=== PATIENT | female | born 1995 | race Native Hawaiian/Other Pacific Islander ===

== ENCOUNTER 2017-11-03 17:01 | Emergency (ER) | payer OTHER ==
[2017-11-03] MEDS ORDERED: ACETAMINOPHEN TAB 500 MG TAB PO STA (17:30)
--- NOTE | 2017-11-03 17:33 | ED ---
Abdominal Pain HPI - General Chief Complaint: Abdominal Pain Stated Complaint: ABDOMINAL PAIN Time Seen by Provider: 11/03/17 17:23 Source: patient Mode of arrival: ambulatory Limitations: no limitations - History of Present Illness Initial Comments: The patient is a 22-year-old female who presents with a chief complaint of right lower quadrant and right-sided back and flank pain. The patient states that her pain started at 11:00 this morning. She has never had pain like this before. She does not have any history of kidney stones. The patient describes her pain as a sharp and aching pain. She states that since onset, it has somewhat improved. The patient denies any aggravating or alleviating factors. Timing has been constant. The patient does not have any known ALLERGIES. She takes control however she states that her last period was 3 weeks ago and that she has been having some spotting. She does not know if she has or not. - Related Data Home Medications Medication Instructions Recorded Confirmed Raya-28 1 tab PO DAILY 11/03/17 11/03/17 Allergies Allergy/AdvReac Type Severity Reaction Status Date / Time No Known Allergies Allergy Verified 11/03/17 18:04 Review of Systems ROS Statement: Those systems with pertinent positive or pertinent negative responses have been documented in the HPI. ROS Other: All systems not noted in ROS Statement are negative. Gastrointestinal: Reports: abdominal pain, nausea, vomiting Musculoskeletal: Reports: back pain Past Medical History Past Medical History: No Reported History History of Any Multi-Drug Resistant Organisms: None Reported Past Surgical History: No Surgical Hx Reported Past Psychological History: No Psychological Hx Reported Smoking Status: Never smoker Past Alcohol Use History: Occasional Past Drug Use History: Marijuana General Exam Limitations: no limitations General appearance: alert, in no apparent distress Head exam: Present: atraumatic, normocephalic Eye exam: Present: normal appearance Respiratory exam: Present: normal lung sounds bilaterally Cardiovascular Exam: Present: regular rate, normal rhythm GI/Abdominal exam: Present: soft, tenderness (Patient has mild tenderness to palpation in the right lower quadrant, and right suprapubic region). Absent: distended Back exam: Present: CVA tenderness (R) Neurological exam: Present: alert, oriented X3 Psychiatric exam: Present: normal affect, normal mood Skin exam: Present: warm, dry, intact Course Vital Signs 11/03/17 11/03/17 17:11 19:04 Temperature 99.3 F Pulse Rate 111 H 88 Respiratory 18 16 Rate Blood Pressure 136/75 117/56 O2 Sat by Pulse 99 98 Oximetry Medical Decision Making - Medical Decision Making Patient presents to the chief complaint of right lower quadrant and right back and flank pain. Patient will initially be given Tylenol for pain and have lab work including an hCG sent. Imaging will be decided on pending results of test. Lab evaluation this patient is unremarkable. test is negative. On reexamination, the patient is having pain in the lower pelvic region. Again she denies any vaginal bleeding, or discharge. She was sent for pelvic ultrasound. Pelvic ultrasound does not show any acute abnormality. There is adequate blood flow to bilateral ovaries. Patient was reexamined again, she states that her pain is improved. This time, she does not want to proceed with any further imaging. At this time she would like to be discharged. I discussed results with her and advised follow-up with primary care. The patient states she has an appointment with primary care on Sunday. Patient was instructed to return to the emergency department if she develops new symptoms, or her pain worsens. - Lab Data Result diagrams: 11/03/17 17:40 11/03/17 17:40 Lab Results 11/03/17 11/03/17 11/03/17 Range/Units 17:40 17:40 17:40 WBC 8.3 (3.8-10.6) k/uL RBC 4.91 (3.80-5.40) m/uL Hgb 14.0 (11.4-16.0) gm/dL Hct 43.9 (34.0-46.0) % MCV 89.6 (80.0-100.0) fL MCH 28.5 (25.0-35.0) pg MCHC 31.9 (31.0-37.0) g/dL RDW 13.7 (11.5-15.5) % Plt Count 183 (150-450) k/uL Neutrophils % 87 % Lymphocytes % 7 % Monocytes % 2 % Eosinophils % 3 % Basophils % 0 % Neutrophils # 7.3 (1.3-7.7) k/uL Lymphocytes # 0.6 L (1.0-4.8) k/uL Monocytes # 0.2 (0-1.0) k/uL Eosinophils # 0.2 (0-0.7) k/uL Basophils # 0.0 (0-0.2) k/uL Sodium 139 (137-145) mmol/L Potassium 4.3 (3.5-5.1) mmol/L Chloride 107 (98-107) mmol/L Carbon Dioxide 21 L (22-30) mmol/L Anion Gap 11 mmol/L BUN 10 (7-17) mg/dL Creatinine 0.70 (0.52-1.04) mg/dL Est GFR (MDRD) Af Amer >60 (>60 ml/min/1.73 sqM) Est GFR (MDRD) Non-Af >60 (>60 ml/min/1.73 sqM) Glucose 96 (74-99) mg/dL Calcium 9.1 (8.4-10.2) mg/dL HCG, Quant <2.4 mIU/mL Urine Color Yellow Urine Appearance Cloudy H (Clear) Urine pH 5.5 (5.0-8.0) Ur Specific [place] 1.020 (1.001-1.035) Urine Protein Trace H (Negative) Urine Glucose (UA) Negative (Negative) Urine Ketones Negative (Negative) Urine Blood Trace H (Negative) Urine Nitrite Negative (Negative) Urine Bilirubin Negative (Negative) Urine Urobilinogen <2.0 (<2.0) mg/dL Ur Leukocyte Esterase Trace H (Negative) Urine RBC 1 (0-5) /hpf Urine WBC 2 (0-5) /hpf Ur Squamous Epith Cells 10 H (0-4) /hpf Urine Bacteria Rare H (None) /hpf Urine Mucus Rare H (None) /hpf Disposition Clinical Impression: Abdominal pain Disposition: HOME SELF-CARE Condition: Good Instructions: Abdominal Pain (ED) Referrals: Aide Santa MD [Primary Care Provider] - 1-2 days
[2017-11-03 17:46] LABS: Basophils % (A) 0 %; Eosinophils # (A) 0.2 k/uL (0-0.7); Eosinophils % (A) 3 %; HCT 43.9 % (34.0-46.0); Lymphocytes # (A) 0.6 k/uL (1.0-4.8); Lymphocytes % (A) 7 %; MCH 28.5 pg (25.0-35.0); MCHC 31.9 g/dL (31.0-37.0); MCV 89.6 fL (80.0-100.0); Mean Platelet Volume 7.8; Monocytes # (A) 0.2 k/uL (0-1.0); Monocytes % (A) 2 %; Neutrophils # (A) 7.3 k/uL (1.3-7.7); Neutrophils % (A) 87 %; Platelet Count 183 k/uL (150-450); RBC 4.91 m/uL (3.80-5.40); RDW 13.7 % (11.5-15.5); WBC 8.3 k/uL (3.8-10.6)
[2017-11-03 18:01] LABS: Anion Gap 11 mmol/L; Blood Urea Nitrogen 10 mg/dL (7-17); Calcium 9.1 mg/dL (8.4-10.2); Carbon Dioxide 21 mmol/L (22-30); Chloride 107 mmol/L (98-107); Glucose 96 mg/dL (74-99); Potassium 4.3 mmol/L (3.5-5.1); Sodium 139 mmol/L (137-145)
[2017-11-03 18:07] LABS: Appearance,Urine Cloudy (Clear); Bacteria,Urine Rare /hpf; Bilirubin,Urine Negative (Negative); Blood,Urine Trace (Negative); Color,Urine Yellow; Glucose,Urine (UA) Negative (Negative); Ketones,Urine Negative (Negative); Leukocyte Esterase,Urine Trace (Negative); Mucus,Urine Rare /hpf; Nitrite,Urine Negative (Negative); PH, Urine 5.5 (5.0-8.0); Protein,Urine Trace (Negative); RBC,Urine 1 /hpf (0-5); Squamous Epithelial Cell,Urine 10 /hpf (0-4); Urobilinogen,Urine <2.0 mg/dL (<2.0); WBC,Urine 2 /hpf (0-5)
[2017-11-03 18:17] LABS: HCG,Quantitative Serum <2.4 mIU/mL
[2017-11-03] MEDS ORDERED: MORPHINE SULFATE 5 MG/ML SYRINGE IV ONE (18:43)
[2017-11-03] MEDS ORDERED: ONDANSETRON 4 MG/2 ML VIAL IVP STA (18:43)
[2017-11-03] MEDS: KETOROLAC 30 MG/ML 1 ML VIAL IVP STA ×2 (19:01→19:02)
--- NOTE | 2017-11-03 20:03 | US ---
EXAMINATION TYPE: US transvaginal DATE OF EXAM: 11/03/2017 COMPARISON: NONE CLINICAL HISTORY: Pain. Pelvic pain and nausea x 1 day, 0 TECHNIQUE: Transvaginal (TV) ER exam Date of LMP: 3 weeks ago EXAM MEASUREMENTS: Uterus: 7.3 x 2.5 x 4.6 cm Endometrial Stripe: 0.3 cm Right Ovary: 3.2 x 1.7 x 2.0 cm Left Ovary: 2.5 x 1.7 x 2.2 cm 1. Uterus: anteverted, wnl 2. Endometrium: small amount of fluid in endocervical canal 3. Right Ovary: wnl 4. Left Ovary: wnl Spectral, color and waveform doppler imaging shows good arterial and venous flow within the ovaries ; 5. Bilateral Adnexa: wnl 6. Posterior cul-de-sac: wnl IMPRESSION: No significant finding is seen to account for patient's symptoms.
[2017-11-03 20:29] VITALS: BP 114/63; PULSE 85; RESP 18; TEMP 97.7
== END 2017-11-03 20:29 | disposition home or self-care (01) ==
LOC: EC 17:01
DX: R10.31 Right lower quadrant pain (principal); Z32.02 Encounter for pregnancy test, result negative; Z79.3 Long term (current) use of hormonal contraceptives
CPT/HCPCS: 36415; 80048; 85025; 81001; 84702; 93975; 76830; 99284; 96374; 96375; J2405; J2274

== ENCOUNTER 2018-04-04 03:03 | Emergency (ER) | payer OTHER ==
[2018-04-04 04:02] LABS: Amphetamine Screen,Urine Not Detected (NotDetected); Barbiturate Screen,Urine Not Detected (NotDetected); Benzodiazepines Screen,Urine Not Detected (NotDetected); Cocaine Screen,Urine Not Detected (NotDetected); Methadone Screen, Urine Not Detected (NotDetected); Opiate Screen,Urine Not Detected (NotDetected); Oxycodone Screen, Urine Not Detected (NotDetected); Phencyclidine Screen,Urine Not Detected (NotDetected); Tricyclic Antidepressant,Urine Not Detected (NotDetected); Urn Cannabinoid Scrn Detected (NotDetected)
--- NOTE | 2018-04-04 05:06 | ED ---
Psych HPI - General Chief Complaint: Psychiatric Symptoms Stated Complaint: arm lac/ suicidal Time Seen by Provider: 04/04/18 03:13 Source: patient Mode of arrival: ambulatory - History of Present Illness Initial Comments: 22-year-old female patient presents to the emergency department today for evaluation of suicidal ideation and lacerations to her bilateral forearms. Patient reports that she was trying to kill herself. Patient states that she has been depressed for the last 3 years. States that she had something happen today that caused her to become upset, she is not forthcoming with what this was. She states that she feels like no one wants her. States that she doesn't want to "do this anymore". Patient denies any history of suicide attempt. Denies ever being admitted for mental health purposes. She states that she does smoke marijuana but denies any other drug use. Patient states she has not been taking her depression medication. She denies any other injuries. States her last tetanus was administered approximately one year ago. Patient states that she did cut in the past however hasn't done so for quite some time. Patient denies any headache, neck pain, back pain, chest pain, shortness of breath, dizziness, weakness, abdominal pain, nausea, vomiting, or difficulties with bowel movements or urination. - Related Data Home Medications Medication Instructions Recorded Confirmed Levonorgestrel-Ethin Estradiol 1 tab PO DAILY 04/04/18 04/04/18 [Levora-28 Tablet] Allergies Allergy/AdvReac Type Severity Reaction Status Date / Time No Known Allergies Allergy Verified 04/04/18 07:53 Review of Systems ROS Statement: Those systems with pertinent positive or pertinent negative responses have been documented in the HPI. ROS Other: All systems not noted in ROS Statement are negative. Past Medical History Past Medical History: No Reported History History of Any Multi-Drug Resistant Organisms: None Reported Past Surgical History: No Surgical Hx Reported Past Psychological History: No Psychological Hx Reported Smoking Status: Current some day smoker Past Alcohol Use History: Occasional Past Drug Use History: Marijuana General Exam Limitations: no limitations General appearance: alert, in no apparent distress, other (This is a well- developed, well-nourished adult female patient who appears anxious. Vital signs upon presentation are temperature 98.2F, pulse 122, respirations 20, blood pressure 138/89, pulse ox 95% on room air.) Eye exam: Present: normal appearance, PERRL, EOMI. Absent: scleral icterus, conjunctival injection, periorbital swelling ENT exam: Present: normal exam, normal oropharynx, mucous membranes moist Respiratory exam: Present: normal lung sounds bilaterally. Absent: respiratory distress, wheezes, rales, rhonchi, stridor Cardiovascular Exam: Present: normal rhythm, tachycardia, normal heart sounds. Absent: systolic murmur, diastolic murmur, rubs, gallop, clicks GI/Abdominal exam: Present: soft, normal bowel sounds. Absent: distended, tenderness, guarding, rebound, rigid Neurological exam: Present: alert, oriented X3, CN II-XII intact Psychiatric exam: Present: depressed, anxious, suicidal ideation, other (Crying) Skin exam: Present: warm, dry, intact, normal color. Absent: rash Expanded 1 - Long superficial laceration, appears to be more of a scratch. No bleeding. Does not require suture repair. 2 - 4 cm laceration 3 - Superficial laceration, appears to be more of a scratch. No bleeding. Does not require suture repair. Course Vital Signs 04/04/18 04/04/18 04/04/18 03:04 05:48 11:56 Temperature 98.2 F 97.8 F 97.8 F Pulse Rate 122 H 99 111 H Respiratory 20 18 20 Rate Blood Pressure 138/89 128/63 126/75 O2 Sat by Pulse 95 100 96 Oximetry Procedures - Laceration Laceration #1 Consent Obtained: verbal consent Time Out Performed: Yes Indication: laceration Site: upper extremity (Right arm) Size (cm): 4 Description: linear Depth: simple, single layer (Exposed adipose tissue) Anesthetic Used: lidocaine 1% Anesthesia Technique: local infiltration Amount (mls): 10 Pre-repair: irrigated extensively Type of Sutures: nylon Size of Sutures: 5-0 Number of Sutures: 6 Technique: simple, interrupted Patient Tolerated Procedure: well, no complications Medical Decision Making - Medical Decision Making This is a well-developed, well-nourished adult female patient who appears to be quite anxious. Patient does admit to suicidal ideation. She does have a laceration to her bilateral forearms. In one did require sutures. Patient's tetanus is up-to-date. Patient is intoxicated, she will have EPS evaluation when sober. Care will be handed over to Dr. Aquino to manage patient until disposition. - Lab Data Result diagrams: 04/04/18 05:55 04/04/18 05:55 Lab Results 04/04/18 04/04/18 04/04/18 Range/Units 03:39 03:39 05:55 WBC 5.6 (3.8-10.6) k/uL RBC 4.54 (3.80-5.40) m/uL Hgb 13.0 (11.4-16.0) gm/dL Hct 40.1 (34.0-46.0) % MCV 88.3 (80.0-100.0) fL MCH 28.6 (25.0-35.0) pg MCHC 32.4 (31.0-37.0) g/dL RDW 12.6 (11.5-15.5) % Plt Count 219 (150-450) k/uL Neutrophils % 47 % Lymphocytes % 42 % Monocytes % 6 % Eosinophils % 2 % Basophils % 0 % Neutrophils # 2.6 (1.3-7.7) k/uL Lymphocytes # 2.3 (1.0-4.8) k/uL Monocytes # 0.3 (0-1.0) k/uL Eosinophils # 0.1 (0-0.7) k/uL Basophils # 0.0 (0-0.2) k/uL Sodium (137-145) mmol/L Potassium (3.5-5.1) mmol/L Chloride (98-107) mmol/L Carbon Dioxide (22-30) mmol/L Anion Gap mmol/L BUN (7-17) mg/dL Creatinine (0.52-1.04) mg/dL Est GFR (CKD-EPI)AfAm (>60 ml/min/1.73 sqM) Est GFR (CKD-EPI)NonAf (>60 ml/min/1.73 sqM) Glucose (74-99) mg/dL Calcium (8.4-10.2) mg/dL Total Bilirubin (0.2-1.3) mg/dL AST (14-36) U/L ALT (9-52) U/L Alkaline Phosphatase (38-126) U/L Total Protein (6.3-8.2) g/dL Albumin (3.5-5.0) g/dL Urine HCG, Qual Not Detected (Not Detectd) Urine Opiates Screen Not Detected (NotDetected) Ur Oxycodone Screen Not Detected (NotDetected) Urine Methadone Screen Not Detected (NotDetected) Ur Propoxyphene Screen Not Detected (NotDetected) Ur Barbiturates Screen Not Detected (NotDetected) U Tricyclic Antidepress Not Detected (NotDetected) Ur Phencyclidine Scrn Not Detected (NotDetected) Ur Amphetamines Screen Not Detected (NotDetected) U Methamphetamines Scrn Not Detected (NotDetected) U Benzodiazepines Scrn Not Detected (NotDetected) Urine Cocaine Screen Not Detected (NotDetected) U Marijuana (THC) Screen Detected H (NotDetected) 04/04/18 Range/Units 05:55 WBC (3.8-10.6) k/uL RBC (3.80-5.40) m/uL Hgb (11.4-16.0) gm/dL Hct (34.0-46.0) % MCV (80.0-100.0) fL MCH (25.0-35.0) pg MCHC (31.0-37.0) g/dL RDW (11.5-15.5) % Plt Count (150-450) k/uL Neutrophils % % Lymphocytes % % Monocytes % % Eosinophils % % Basophils % % Neutrophils # (1.3-7.7) k/uL Lymphocytes # (1.0-4.8) k/uL Monocytes # (0-1.0) k/uL Eosinophils # (0-0.7) k/uL Basophils # (0-0.2) k/uL Sodium 149 H (137-145) mmol/L Potassium 4.2 (3.5-5.1) mmol/L Chloride 113 H (98-107) mmol/L Carbon Dioxide 22 (22-30) mmol/L Anion Gap 14 mmol/L BUN 8 (7-17) mg/dL Creatinine 0.71 (0.52-1.04) mg/dL Est GFR (CKD-EPI)AfAm >90 (>60 ml/min/1.73 sqM) Est GFR (CKD-EPI)NonAf >90 (>60 ml/min/1.73 sqM) Glucose 91 (74-99) mg/dL Calcium 9.4 (8.4-10.2) mg/dL Total Bilirubin 0.2 (0.2-1.3) mg/dL AST 23 (14-36) U/L ALT 34 (9-52) U/L Alkaline Phosphatase 64 (38-126) U/L Total Protein 6.8 (6.3-8.2) g/dL Albumin 4.1 (3.5-5.0) g/dL Urine HCG, Qual (Not Detectd) Urine Opiates Screen (NotDetected) Ur Oxycodone Screen (NotDetected) Urine Methadone Screen (NotDetected) Ur Propoxyphene Screen (NotDetected) Ur Barbiturates Screen (NotDetected) U Tricyclic Antidepress (NotDetected) Ur Phencyclidine Scrn (NotDetected) Ur Amphetamines Screen (NotDetected) U Methamphetamines Scrn (NotDetected) U Benzodiazepines Scrn (NotDetected) Urine Cocaine Screen (NotDetected) U Marijuana (THC) Screen (NotDetected) Disposition Clinical Impression: Laceration of right forearm Disposition: HOME SELF-CARE Instructions: Depression (ED), Alcohol Intoxication (ED) Is patient prescribed a controlled substance at d/c from ED?: No Referrals: Aide Santa MD [Primary Care Provider] - 1-2 days
[2018-04-04 05:49] VITALS: TEMP 97.8
[2018-04-04] MEDS ORDERED: IBUPROFEN 400 MG TAB PO STA (05:49)
[2018-04-04 06:07] LABS: Basophils % (A) 0 %; Eosinophils # (A) 0.1 k/uL (0-0.7); Eosinophils % (A) 2 %; HCT 40.1 % (34.0-46.0); Lymphocytes # (A) 2.3 k/uL (1.0-4.8); Lymphocytes % (A) 42 %; MCH 28.6 pg (25.0-35.0); MCHC 32.4 g/dL (31.0-37.0); MCV 88.3 fL (80.0-100.0); Mean Platelet Volume 7.5; Monocytes # (A) 0.3 k/uL (0-1.0); Monocytes % (A) 6 %; Neutrophils # (A) 2.6 k/uL (1.3-7.7); Neutrophils % (A) 47 %; Platelet Count 219 k/uL (150-450); RBC 4.54 m/uL (3.80-5.40); RDW 12.6 % (11.5-15.5); WBC 5.6 k/uL (3.8-10.6)
[2018-04-04 06:19] LABS: ALT 34 U/L (9-52); AST 23 U/L (14-36); Albumin 4.1 g/dL (3.5-5.0); Alkaline Phosphatase 64 U/L (38-126); Anion Gap 14 mmol/L; Blood Urea Nitrogen 8 mg/dL (7-17); Calcium 9.4 mg/dL (8.4-10.2); Carbon Dioxide 22 mmol/L (22-30); Chloride 113 mmol/L (98-107); Glucose 91 mg/dL (74-99); Potassium 4.2 mmol/L (3.5-5.1); Sodium 149 mmol/L (137-145); Total Bilirubin 0.2 mg/dL (0.2-1.3); Total Protein 6.8 g/dL (6.3-8.2)
[2018-04-04] MEDS ORDERED: LORazepam 1 MG TAB PO STA (11:37)
[2018-04-04 11:57] VITALS: BP 126/75; PULSE 111; RESP 20
== END 2018-04-04 12:30 | disposition home or self-care (01) ==
LOC: EC 03:03
DX: S51.812A Laceration without foreign body of left forearm, initial encounter (principal); S51.811A Laceration without foreign body of right forearm, initial encounter; F41.8 Other specified anxiety disorders; R45.851 Suicidal ideations; R45.83 Excessive crying of child, adolescent or adult; R00.0 Tachycardia, unspecified; F10.129 Alcohol abuse with intoxication, unspecified; F12.90 Cannabis use, unspecified, uncomplicated; F17.200 Nicotine dependence, unspecified, uncomplicated; Z79.3 Long term (current) use of hormonal contraceptives; X78.1XXA Intentional self-harm by knife, initial encounter
CPT/HCPCS: 12002; 36415; 80053; 80306; 81025; 82075; 85025; 99284